=== PATIENT | male | born 1965 | race Hispanic/Latino ===

== ENCOUNTER 2018-07-19 19:42 | Emergency (ER) | payer SELFPAY ==
[~2018-07-19] VITALS: Ht 167.6 cm; Wt 88.5 kg
--- OUTSIDE RECORDS SUMMARY | 2018-07-19 19:44 | XMS REPORT ---
Author [facility] Address Unknown Phone Unavailable Care Team Providers Care Merchandise Planning Manager Name Role Phone Unavailable Unavailable Problems This patient has no known problems. Allergies, Adverse Reactions, Alerts This patient has no known allergies or adverse reactions. Medications This patient has no known medications. Encounters Start Date/Time End Date/Time Encounter Type Admission Type Attending [facility] Care Department Encounter ID 2017-09-23 00:00:00 2017-09-23 00:00:00 Outpatient [facility] [id number] 2016-11-03 00:00:00 2016-11-03 00:00:00 Outpatient [facility] [id number] 2016-10-19 00:00:00 2016-10-19 00:00:00 Outpatient [facility] [id number] 2016-10-12 15:24:40 2016-10-12 15:24:40 Outpatient [facility] [id number] 2016-10-12 14:21:15 2016-10-12 14:21:15 Outpatient [facility] [id number] 2016-09-22 00:00:00 2016-09-22 00:00:00 Outpatient [facility] [id number] 2016-09-18 07:45:57 2016-09-18 07:45:57 Outpatient [facility] [id number] 2016-09-15 15:40:22 2016-09-15 15:40:22 Outpatient [facility] [id number]
== END 2018-07-19 20:42 | disposition left against medical advice (07) ==
LOC: FSED 19:42
DX: R04.0 Epistaxis (principal)
CPT/HCPCS: 99282